=== PATIENT | male | born 1970 | race Two or more races ===

== ENCOUNTER 2022-05-24 20:24 | Emergency (ER) | payer OTHER ==
[~2022-05-24] VITALS: Ht 170.2 cm; Wt 95.3 kg
[2022-05-25] MEDS ORDERED: ZESTRIL10 M1 PO (03:18)
== END 2022-05-25 03:28 | disposition home or self-care (01) ==
LOC: ER 20:24
DX: R51.9 Headache, unspecified (principal); I10 Essential (primary) hypertension

== ENCOUNTER 2024-05-21 09:54 | Inpatient (IN) | payer OTHER ==
[~2024-05-21] VITALS: Ht 152.4 cm; Wt 97.5 kg
[~2024-05-21 09:54] MED LIST: ZESTRIL10 M1 PO
[2024-05-21] MEDS ORDERED: LIPITOR20 MG PO (10:27)
[2024-05-21] MEDS ORDERED: LISINOPRIL2.5 MG PO (10:27)
[2024-05-21] MEDS ORDERED: ACETAMINOPHEN 500 MG GEL..CAP PO ONE (10:45)
[2024-05-21 11:11] LABS: HEMATOCRIT 42.6 % (39.0-48.0); MEAN CORPUSCULAR HEMOGLOBIN 22.6 pg (27.00-32.0); MEAN CORPUSCULAR HGB CONC 32.9 g/dl (32.0-36.0); RED CELL DISTRIBUTION WIDTH 16.4 % (11.5-14.5)
[2024-05-21 11:14] LABS: MEAN CELL VOLUME 68.7 fL (80.0-100.00); PLATELET COUNT 75 K/uL (150-450)
[2024-05-21] MEDS ORDERED: 0.9 % SODIUM CHLORIDE 1,000 ML IV ONE (11:15)
[2024-05-21 12:03] LABS: PH,URINE 6.5 (5.0-8.0); URINE APPEARANCE Clear; URINE BILIRRUBIN Negative (NEGATIVE); URINE BLOOD Negative; URINE COLOR Yellow; URINE GLUCOSE Negative (NEGATIVE); URINE KETONE Negative (NEGATIVE); URINE LEUKOCYTE Negative; URINE NITRATE Negative; URINE PROTEIN 30 (NEGATIVE); URINE UROBILINOGEN 0.2 E.U./dl
[2024-05-21 12:07] LABS: URINE BACTERIA 17.6 uL (0.0-1933); URINE EPITHELIAL CELLS 4.4 uL (0.0-38.8); URINE RBC 15.2 uL (0.0-20.8); URINE WBC 4.9 uL (0.0-23.2)
[2024-05-21 13:01] LABS: HEMATOCRIT 40.1 % (39.0-48.0); HEMOGLOBIN 13.3 g/dL (13-16.00); MEAN CORPUSCULAR HEMOGLOBIN 22.8 pg (27.00-32.0); MEAN CORPUSCULAR HGB CONC 33.3 g/dl (32.0-36.0); RED BLOOD COUNT 5.83 M/uL (4.00-6.00); RED CELL DISTRIBUTION WIDTH 16.4 % (11.5-14.5)
[2024-05-21 13:02] LABS: PLT IN CITRATE 64 K/uL (150-450)
[2024-05-21 13:04] LABS: MEAN CELL VOLUME 68.7 fL (80.0-100.00); PLATELET COUNT 66 K/uL (150-450)
[2024-05-21] MEDS ORDERED: 0.9 % SODIUM CHLORIDE 1,000 ML IV SCH ×2 (13:15→17:30)
[2024-05-21] MEDS ORDERED: ACETAMINOPHEN 500 MG GEL..CAP PO PRN (13:15)
[2024-05-21 14:13] LABS: ALBUMIN 3.3 gm/dL (3.4-5.0); BILIRUBIN TOTAL 0.27 mg/dL (0.3-1.2); CALCIUM 8.4 mg/dL (8.5-10.1); CREATININE SERUM 1.3 mg/dL (0.70-1.30); GFR 57.31; GLOBULINA 3.6 G/DL (2.4-3.5); POTASSIUM 4.49 mEq/L (3.5-5.1); TOTAL PROTEIN 6.9 gm/dL (6.4-8.2)
[2024-05-21 18:20] LABS: INR 1.19; PARTIAL THROMBOPLASTIN TIME 37.4 SECONDS (22.0-34.0); PROTHROMBIN TIME 12.8 SECONDS (9.0-11.5)
[2024-05-21 22:13] VITALS: BP 128/81; O2SAT 97
[2024-05-22 00:29] VITALS: BP 125/62; O2SAT 94
[2024-05-22 06:31] LABS: HEMATOCRIT 39.9 % (39.0-48.0); HEMOGLOBIN 13.3 g/dL (13-16.00); MEAN CORPUSCULAR HEMOGLOBIN 22.8 pg (27.00-32.0); MEAN CORPUSCULAR HGB CONC 33.3 g/dl (32.0-36.0); RED BLOOD COUNT 5.84 M/uL (4.00-6.00); RED CELL DISTRIBUTION WIDTH 16.3 % (11.5-14.5)
[2024-05-22 07:09] LABS: MEAN CELL VOLUME 68.3 fL (80.0-100.00)
[2024-05-22 07:10] LABS: PLATELET COUNT 55 K/uL (150-450)
[2024-05-22 08:14] VITALS: BP 114/63; O2SAT 97
[2024-05-22] MEDS ORDERED: LISINOPRIL 2.5 MG TABLET PO SCH (09:00)
[2024-05-22] MEDS ORDERED: PANTOPRAZOLE SODIUM 40 MG/VIAL VIAL IV SCH (09:00)
[2024-05-22] MEDS ORDERED: ATORVASTATIN CALCIUM 20 MG TABLET PO SCH (09:00)
[2024-05-22 15:32] LABS: ALBUMIN 3.2 gm/dL (3.4-5.0); BILIRUBIN TOTAL 0.25 mg/dL (0.3-1.2); CALCIUM 8.3 mg/dL (8.5-10.1); CREATININE SERUM 1.16 mg/dL (0.70-1.30); GFR 65.37; GLOBULINA 3.3 G/DL (2.4-3.5); POTASSIUM 4.16 mEq/L (3.5-5.1); TOTAL PROTEIN 6.5 gm/dL (6.4-8.2)
[2024-05-22 16:50] VITALS: BP 120/71; O2SAT 95
[2024-05-22] MEDS ORDERED: Cyanocobalamin/Mecobalamin 1 TAB.SL SL SCH (17:00)
[2024-05-22] MEDS ORDERED: VITAMIN B COMPLEX 1 EACH PO SCH (17:00)
[2024-05-22] MEDS ORDERED: THIAMINE HCL 100 MG TABLET PO SCH (17:00)
[2024-05-23 00:33] VITALS: BP 114/70; O2SAT 99
[2024-05-23 00:36] VITALS: BP 147/90; O2SAT 97
[2024-05-23 08:27] VITALS: BP 124/72
[2024-05-23 08:28] LABS: HEMATOCRIT 41.9 % (39.0-48.0); HEMOGLOBIN 13.7 g/dL (13-16.00); MEAN CORPUSCULAR HEMOGLOBIN 22.7 pg (27.00-32.0); MEAN CORPUSCULAR HGB CONC 32.6 g/dl (32.0-36.0); RED BLOOD COUNT 6.01 M/uL (4.00-6.00); RED CELL DISTRIBUTION WIDTH 16.1 % (11.5-14.5)
[2024-05-23 10:59] LABS: MEAN CELL VOLUME 69.8 fL (80.0-100.00)
[2024-05-23 11:00] LABS: PLATELET COUNT 33 K/uL (150-450)
[2024-05-23 17:18] VITALS: BP 147/80
[2024-05-23 22:16] VITALS: BP 152/71
[2024-05-24] VITALS (7 sets, daily range): BP systolic 117–150; BP diastolic 72–92; O2SAT 96
[2024-05-24 07:55] LABS: HEMATOCRIT 41.7 % (39.0-48.0); HEMOGLOBIN 13.4 g/dL (13-16.00); MEAN CELL VOLUME 70.2 fL (80.0-100.00); MEAN CORPUSCULAR HEMOGLOBIN 22.6 pg (27.00-32.0); MEAN CORPUSCULAR HGB CONC 32.2 g/dl (32.0-36.0); RED BLOOD COUNT 5.94 M/uL (4.00-6.00)
[2024-05-24 08:29] LABS: PLATELET COUNT 41 K/uL (150-450)
[2024-05-25 02:10] VITALS: BP 160/90; O2SAT 98
[2024-05-25 08:55] VITALS: BP 164/100
[2024-05-25 09:44] VITALS: BP 149/96
[2024-05-25 11:57] LABS: HEMATOCRIT 41.4 % (39.0-48.0); HEMOGLOBIN 13.6 g/dL (13-16.00); MEAN CORPUSCULAR HEMOGLOBIN 22.7 pg (27.00-32.0); MEAN CORPUSCULAR HGB CONC 32.7 g/dl (32.0-36.0); RED BLOOD COUNT 5.98 M/uL (4.00-6.00); RED CELL DISTRIBUTION WIDTH 16.2 % (11.5-14.5)
[2024-05-25 11:58] LABS: MEAN CELL VOLUME 69.3 fL (80.0-100.00); PLATELET COUNT 53 K/uL (150-450)
[2024-05-25 15:56] LABS: ALBUMIN 3.2 gm/dL (3.4-5.0); BILIRUBIN TOTAL 0.47 mg/dL (0.3-1.2); CALCIUM 8.6 mg/dL (8.5-10.1); CREATININE SERUM 1.07 mg/dL (0.70-1.30); GFR 71.75; GLOBULINA 3.7 G/DL (2.4-3.5); POTASSIUM 4.59 mEq/L (3.5-5.1); TOTAL PROTEIN 6.9 gm/dL (6.4-8.2)
[2024-05-25 17:29] VITALS: BP 147/93; O2SAT 99
[2024-05-26 01:40] VITALS: BP 140/100; O2SAT 97
[2024-05-26 03:04] VITALS: BP 140/90
[2024-05-26 08:08] LABS: HEMATOCRIT 40.5 % (39.0-48.0); HEMOGLOBIN 13.2 g/dL (13-16.00); MEAN CORPUSCULAR HEMOGLOBIN 22.4 pg (27.00-32.0); MEAN CORPUSCULAR HGB CONC 32.7 g/dl (32.0-36.0); RED BLOOD COUNT 5.91 M/uL (4.00-6.00); RED CELL DISTRIBUTION WIDTH 15.8 % (11.5-14.5)
[2024-05-26 08:11] LABS: MEAN CELL VOLUME 68.5 fL (80.0-100.00); PLATELET COUNT 84 K/uL (150-450)
[2024-05-26 08:22] LABS: INR 1.09; PARTIAL THROMBOPLASTIN TIME 27.3 SECONDS (22.0-34.0); PROTHROMBIN TIME 11.8 SECONDS (9.0-11.5)
[2024-05-26 08:55] VITALS: BP 119/75; O2SAT 97
[2024-05-26 16:07] VITALS: BP 160/85
[2024-05-26 17:40] VITALS: BP 140/80
[2024-05-26] MEDS ORDERED: LISINOPRIL2.5 MG PO (18:48)
[2024-05-26] MEDS ORDERED: LIPITOR20 MG PO (18:48)
== END 2024-05-26 19:21 | disposition home or self-care (01) | DRG 866 ==
LOC: ER 09:55 → MEDI 17:54 → MEDJ 05-22 19:56
PROVIDERS: General Practice; Internal Medicine Hematology & Oncology; Internal Medicine Infectious Disease; ADMIT Internal Medicine; ATTEND Internal Medicine
PROC: BW40ZZZ Ultrasonography of Abdomen (ICD-10-PCS; principal; 2024-05-21)
DX: A90 Dengue fever [classical dengue] (principal); D69.6 Thrombocytopenia, unspecified; I10 Essential (primary) hypertension